=== PATIENT | female | born 1935 | race Caucasian/White ===

== ENCOUNTER 2016-07-02 13:45 | Emergency (ER) | payer MEDICARE, OTHER ==
[2016-07-02 14:01] VITALS: BP 179/101; PULSE 91; RESP 18; O2SAT 100
--- NOTE | 2016-07-02 14:07 | ED.REPORT ---
HPI-Chest Pain 40 and Over Date of Service Jul 02, 2016 ED Provider: Wesley Vail MD This is an 81 year old female with a history of acid reflux presenting with substernal chest pain that began 2 days ago. Pain is intermittent and described as sharp. She denies vomiting, fever, chills, cough, abdominal pain, constipation, diarrhea, or diaphoresis. Pt states symptoms are different from those she experiences with acid reflux. Nursing Notes Stated Complaint: NAUSEA/VOMITING Chief Complaint: Chest Pain-Non Cardiac Nature Nursing Notes Reviewed: Yes Allergies: Coded Allergies: No Known Allergies (Unverified , 07/02/16) Scheduled Omeprazole (Omeprazole) 40 Mg Capsule.dr 40 MG PO DAILY General Time Seen by MD: 13:59 Chief Complaint Chest pain Hx Obtained From: Patient Arrived By: Ambulance Sudden in Onset?: Yes Onset Occurred: 2 days ago Symptom Duration: Since onset Severity: Current: Mild Pertinent Negative: Pt denies other symptoms Recent Healthcare: No recent doctor visit, No recent hospitalization Similar Sx Previous: No Past Medical History Past Medical History Acid reflux Past Surgical History Denies Ambulatory Status Wheelchair Review of Systems Constitutional: Denies: Chills, Fever Respiratory: Denies: Non-productive cough, Shortness of breath Cardiovascular: Reports: Chest pain GI: Denies: Abdominal pain, Nausea, Vomiting Neurologic: Denies: Change LOC, Confusion, Dizziness, Headache, Lightheaded Complete sys rev & neg: except as marked. Physical Exam Initial Vital Signs Vital Signs (First) Date Time Temp Pulse Resp B/P Pulse Ox O2 Delivery O2 Flow Rate FiO2 07/02/16 14:01 36.6 91 18 179/101 100 Room Air Initial VS: Reviewed Head / Eyes: Atraumatic, Normocephalic, PERRL ENT: Mucous membranes moist, Conjunctiva normal, No scleral icterus Neck: Supple, Non-tender, Full range of motion Extremities: Vascular intact, Neuro intact, No swelling, No tenderness Skin: Warm, Dry, No cyanosis Neurologic: Alert, Oriented, Nonfocal Psychiatric: Mood/affect normal, Behavior normal, Normal thought content General/Constitutional: Awake, Alert Respiratory / Chest: Breath sounds NL, Breath sounds = bilat, No respiratory distress, No rales, No rhonchi, No wheezing, No stridor, No chest tenderness Non-reproducible substernal chest tenderness Cardiovascular: Heart rate NL, Regular rhythm, Heart sounds NL, No murmurs, Peripheral circulation NL, Pulses = bilaterally, No gross BP differential Abdomen: Non-tender, No guarding, No rebound, BS normoactive Interpretation & Diagnostics Lab Results Interpretation Result Diagram: 07/02/16 1412 07/02/16 1412 Test 07/02/16 14:12 White Blood Count 7.2th/mm3 (3.8-10.1) Red Blood Count 5.01mil/mm3 (3.90-5.20) Hemoglobin 14.4g/dL (12.0-15.6) Hematocrit 42.6% (35.0-46.0) Mean Corpuscular Volume 85.0fL (81-100) Mean Corpuscular Hemoglobin 28.7pg (27.0-35.0) Mean Corpuscular Hemoglobin Concent 33.8% (32.0-37.0) Red Cell Distribution Width 16.1% (12.3-15.4) Platelet Count 341bil/L (150-400) Neutrophils (%) (Auto) 81.0% (40-74) Lymphocytes (%) (Auto) 9.5% (14-46) Monocytes (%) (Auto) 8.2% (4-12) Eosinophils (%) (Auto) 0.6% (0-5) Basophils (%) (Auto) 0.6% (0-3) Sodium Level 139mEq/L (134-144) Potassium Level 3.9mEq/L (3.5-5.2) Chloride Level 100mEq/L (97-108) Carbon Dioxide Level 23mmol/L (18-29) Blood Urea Nitrogen 13mg/dL (8-27) Creatinine 0.73mg/dL (0.57-1.00) Estimat Glomerular Filtration Rate 109mL/min (>59) Glucose Level 87mg/dL (60-99) Calcium Level 9.2mg/dL (8.5-10.1) Magnesium Level 2.2mg/dL (1.6-2.6) Total Bilirubin 0.6mg/dL (0.0-1.2) Aspartate Amino Transf (AST/SGOT) 24U/L (0-50) Alanine Aminotransferase (ALT/SGPT) 20U/L (0-32) Alkaline Phosphatase 73U/L (25-165) Troponin T < 0.010ug/L (0.0-0.011) Pro-B-Type Natriuretic Peptide 250.5pg/mL (0-738) Total Protein 7.4g/dL (6.4-8.4) Albumin 4.0g/dL (3.4-5.0) Hold Albarran Top Tube Received (Received) ECG Interpretation ECG Interpretation: Sinus tachycardia at a rate of 99 Q waves in V2 and V3 Re-Eval/Medical Decision Med Decision/Clinical Course 81-year-old female history of acid reflux presenting complaining of epigastric substernal chest pain started several days ago. It is coming on but has been present most of the last couple days. Nonexertional. No associated symptoms. EKG no signs ischemia. Troponins negative. Chest pain is not reproducible. No risk factors for PE. Patient's pain resolved immediately after GI cocktail. Likely due to gastritis. Prescribed prescription for omeprazole daily and Tums as needed. Return precautions given. Time of Eval: 15:46 Re-Evaluation/Progress Note: Re-checked, discussed plan for d/c, all questions addressed. Counseled Regarding: Diagnosis, Lab results, Need for follow-up, When/why to return to ED Discharge & Departure Primary Impression: Non-cardiac chest pain Additional Impression: Gastritis Disposition: Home Discharge Condition All VS Reviewed: Yes Condition: Stable Patient Instructions: Chest Pain (ED), Gastritis (ED) Additional Instructions: Your labs and x-ray were reassuring today. Take omeprazole as prescribed. Follow-up with your primary care provider. Return to the emergency department if you develop any new or worsening symptoms. Scribe Attestation Portions of this note were transcribed by Theo Tsai. I, Dr. Vail personally performed the history, physical exam and medical decision-making; I reviewed and confirmed the accuracy of the information in the transcribed note. Signed by: Theo Tsai. 07/02/2015, 14:07. Wesley Vail MD Jul 02, 2016 14:07 THEO TSAI Jul 02, 2016 14:15
[2016-07-02] MEDS ORDERED: Alum-Mag Hydrox-Simeth 30 mL Suspension PO ONE (14:15)
[2016-07-02 14:22] LABS: BASOPHILS % (AUTO) 0.6 % (0-3); EOSINOPHILS % (AUTO) 0.6 % (0-5); MONOCYTES % (AUTO) 8.2 % (4-12); Mean Corpuscular Hemoglobin 28.7 pg (27.0-35.0); Platelet Count 341 bil/L (150-400)
[2016-07-02 14:59] LABS: Magnesium 2.2 mg/dL (1.6-2.6)
[2016-07-02 15:01] LABS: TROPONIN T < 0.010 ug/L (0.0-0.011)
[2016-07-02] MEDS ORDERED: OMEP40CA36 PO (15:51)
--- NOTE | 2016-07-02 15:51 | DRSVH ---
PROCEDURE: X-RAY CHEST ONE VIEW, PORTABLE ([id number]) INDICATIONS: chest pain TECHNIQUE: One view of the chest was acquired. COMPARISON: None. FINDINGS: Surgical changes and devices: None. Lungs and pleura: No pleural effusions or pneumothorax. Lungs are clear. Mediastinum: Mediastinal contours appear normal. Heart size is normal. Bones and chest wall: No suspicious bony lesions. Overlying soft tissues appear unremarkable. IMPRESSION: No acute cardiopulmonary disease process. Dictated by: Magnolia Harper MD, PhD on 07/02/2016 at 15:49 Approved by: Magnolia Harper MD, PhD on 07/02/2016 at 15:49
[2016-07-02 17:15] VITALS: BP 146/79; PULSE 87
[2016-07-17] MEDS ORDERED: LANS30CA14 PO (15:47)
[2016-07-17] MEDS ORDERED: ONDA4TAB6 PO (15:47)
== END 2016-07-02 17:16 | disposition home or self-care (01) ==
LOC: EDBD 13:45 → SED 13:45
DX: R07.89 Other chest pain (principal); K29.70 Gastritis, unspecified, without bleeding

== ENCOUNTER 2016-07-18 12:01 | Day surgery (SDC) | payer MEDICARE, OTHER ==
[~2016-07-18] VITALS: Ht 162.6 cm; Wt 46.7 kg
[~2016-07-18 12:01] MED LIST: 0.9% Sodium Chloride 1,000 ML IV SCH; LANS30CA14 PO; Lactated Ringer's 1,000 ML IV ONE; OMEP40CA36 PO; ONDA4TAB6 PO; Sodium Chloride LOK Flush 10 mL Syringe IV PRN; fentaNYL-PF 50 mCg/mL 2 mL Inj IVPUSH PRN
[2016-07-18] MEDS ORDERED: Propofol 10,000 mCg/mL 20 mL Inj ONE (12:02)
[2016-07-18 12:31] VITALS: BP 113/80; PULSE 67; RESP 16; O2SAT 99
[2016-07-18] MEDS ORDERED: LANS30TA4 PO (12:50)
[2016-07-18] MEDS ORDERED: Lactated Ringer's 1,000 ML IV SCH (14:01)
--- NOTE | 2016-07-18 14:01 | PCM.HPANE ---
Patient Data Surgeon Admitting Provider: Attending Provider:Pawan Peng MD Primary Care Physician:Víctor Toro PA-C Other Provider:Leti Kauffman Anesthesia Reason for Visit Esophageal Obstruction Ht/WT & BMI Height (Feet): 5 Height (Inches): 4 Weight (Kilograms): 46.720 Body Mass Index 17.00 Allergies Coded Allergies: No Known Allergies (Unverified , 07/18/16) Past Anesthesia History Anesthesia History: Denies:: Abnormal Airway, Anesthesia Reactions, Difficult Intubation, Fam Anesthesia Reaction, Fam Malignant Hypertherm, Malignant Hyperthermia Diabetes History Hx Diabetes?: No MRSA MRSA: No Medications Home Meds Incl Beta Josefina: No Reported Medications Lansoprazole ODT (Prevacid ODT)30 Mg [id number] Mg PO DAILY Ref 0 07/18/16 Discontinued Reported Medications Lansoprazole DR (Prevacid)30 Mg [id number] Mg PO DAILY Ref 0 07/17/16 Ondansetron (Zofran)4 Mg Tablet4 Mg PO Q4H PRN For Nausea 07/17/16 Discontinued Scripts Omeprazole 40 Mg Capsule.dr40 Mg PO DAILY #30 CAPSULE Ref 0 Prov:Wesley Vail MD 07/02/16 History HEENT History: Positive for:: Dysphagia (UNABLE TO KEEP EVEN FLUIDS/PILLS DOWN. BEGAN IN 04/2016) Denies:: Abnormal Airway Difficult Intubation Hearing Problem Denture Type: Full- Upper Hx of Heart Problems?: No Cardiovascular History: Denies:: AICD Atrial Fibrillation Chest Pain Congestive Heart Failure Hypertension Pacemaker Valvular Heart Disease Hx of Respiratory Problem?: No Respiratory History: Denies:: Asthma COPD Cough Hemoptysis Pneumonia Tuberculosis Neurological History: Denies:: CVA Hx of GI Problems?: Yes Gastrointestinal History: Positive for:: Gastroesphageal Reflux (TAKING PEPCID SOLU-TABS WHEN SHE CAN) Denies:: Cirrhosis Diverticulitis Gall Bladder Disease Hiatal Hernia Liver Disease Rectal Bleeding Female Hx: Denies:: Currently Musculoskeletal History: Denies:: Fibromyalgia Joint Replacement Psycho Social History: Denies:: Anxiety Hx Depression Hx Surgeries?: Yes (MAXILLARY RESECTION) Hx Any Other Health Problems?: Yes Hx Diabetes: No Hx Alcohol Use: NoHx Substance Use: No Stop/Bang Treated for Sleep Apnea?: No Do You Have a CPAP Machine?: No S-Snoring: Do You Snore Loudly: No T-Tired: feel tired, fatigued: No O-Obsered: Observed not breath: No P-Blood Pressure: treated: No B- Body Mass Index > 35 kg/m2: No A- Age over 50: Yes N- Neck Large Circumference: No G- Gender Male: No GERMÁN Total Score: 1 Risk Assessment Category Category 1A: Patient has history of documented sleep apnea, and HAS NOT received any narcotic, sedative or anesthesia administration during this stay. Category 1B: Patient has history of documented sleep apnea, and HAS received any narcotic , sedative or anesthesia administration during this stay Category 2: Patient has SUSPECTED Obstructive Sleep Apnea, and HAS received any narcotic , sedative or anesthesia administration during this stay. Category 3: Patient has SUSPECTED Obstructive Sleep Apnea and HAS NOT received narcotic, sedative or anesthesia administration during this stay. Category 4: Outpatient in Procedural Areas with known sleep apnea or who screen positive for High Risk via the STOP/BANG questionnaire. Exam Exam Vital Signs Vital Signs Date Time Temp Pulse Resp B/P Pulse Ox O2 Delivery O2 Flow Rate FiO2 07/18/16 12:31 36.8 67 16 113/80 99 Room Air General Appearance: Alert, Oriented X3, Cooperative HEENT/AIRWAY: MP 2 Lungs: Clear to Auscultation Heart: Exam Unremarkable Meds/Labs/Diagnostics Admission Meds Current Medications Lactated Ringer's (Lr) 1,000 ml @ 10 mls/hr Q24H ONCE IV Last administered on 07/18/16t 12:31; Start 07/18/16 at 06:00; Stop 07/19/16 at 05:59 Plan Impression Patient chart reviewed, patient interviewed and anesthestic plan with risks, benefits, and alternatives discussed, and informed consent obtained. ASA Physical Status: ASA2 Mod Systemic Disease Anesthetic Plan: TIVA Bene/Risks/Altern/Consents: Yes HP Complete Prior to Induction: Yes Rudolph Owens MD Jul 18, 2016 14:01
[2016-07-18] MEDS ORDERED: MetoCLOpramide 5 mg/mL 2 mL Inj IVPUSH PRN (14:05)
[2016-07-18] MEDS ORDERED: Ondansetron 2 mg/mL 2 mL Inj IVPUSH PRN (14:05)
[2016-07-18 14:50] VITALS: BP 125/83; PULSE 69; RESP 16; O2SAT 97
[2016-07-18 15:00] VITALS: BP 129/82; PULSE 66; RESP 16; O2SAT 98
[2016-07-18 15:10] VITALS: BP 152/91; PULSE 70; RESP 16; O2SAT 98
--- NOTE | 2016-07-18 15:19 | PCM.ANEP1 ---
Post Anesthesia Phase 1 PACU Phase 1 Assessment Vital Signs Vital Signs Date Time Temp Pulse Resp B/P Pulse Ox O2 Delivery O2 Flow Rate FiO2 07/18/16 15:10 70 16 152/91 98 Room Air 07/18/16 15:00 66 16 129/82 98 Room Air 07/18/16 14:50 69 16 125/83 97 Room Air 07/18/16 12:31 36.8 67 16 113/80 99 Room Air Anesthetic Administered: MAC Level of Alertness: Awake, talking BEE's with Equal Strength: Yes Pain: No Nausea or Vomiting: No Oxygen Delivery: Room Air Lungs: Clear to Auscultation Dermatome Level: Full Sensation Rudolph Owens MD Jul 18, 2016 15:19
[2016-07-18 15:20] VITALS: BP 146/97; PULSE 67; RESP 16; O2SAT 99
--- NOTE | 2016-07-18 15:20 | PCM.ANEP2 ---
Post Anesthesia Evaluation ASA/CMS Post Anesthesia VS in Patient's Normal Range?: Yes Resp Stable; Airway Patent?: Yes CV Function & Hydration Stable: Yes Mental Status Recovered?: Yes Pain control Satisfactory?: Yes N/V Control Satisfactory?: Yes Rudloph Owens MD Jul 18, 2016 15:20
--- NOTE | 2016-07-21 08:13 | ENDO ---
[address] [address] ENDOSCOPY PROCEDURE PATIENT: BRENDEN NOONAN : 1935 MR#: [id number] ADMIT: 07/18/2016 JOB ID: [id number] DATE: 07/18/2016 PROCEDURE: Esophagogastroduodenoscopy. INDICATION: Dysphagia. Patient with a history of suspected esophageal cancer. She had a prior endoscopy done in [place] approximately two months ago, and at that time, was told that she likely has esophageal cancer. The patient deferred any further evaluation in terms of staging or treatment. She declined Oncology referral. The patient has had worsening dysphagia and was referred to me for further evaluation and treatment. Please see Dr. Owens's anesthesia report for details regarding ASA classification, Mallampati score and medications. INSTRUMENT USED: GIF H 180 as well as a GIXP 190 N. PROCEDURE DETAILS: After informed consent was obtained, the patient was brought into the GI suite, where she was placed on oxygen via nasal cannula and monitored with continuous pulse oximeter, telemetry and blood pressure monitoring. A time-out was performed. Then, she was placed in the left lateral decubitus position and a bite block was placed. Medications were then administered for sedation. A standard EGD scope was then inserted through the bite block and advanced to approximately 41 cm. Beyond this point, we encountered a stricture. The mucosa at 41 cm appeared to be friable but no obvious mass lesion was seen. The mucosa did appear to be mildly adenomatous. The standard EGD scope was then withdrawn and the GIF XP 190 N 5 mm scope was introduced through the bite block and we were able to advance this without difficulty to the second portion of the duodenum. FINDINGS: 1. From the GE junction extending to the mid gastric body, the mucosa contained pseudopolyps as well as appeared to be quite friable. Multiple random biopsies were obtained. Just below the GE junction in the cardia, there was an approximately 1 cm area of circumscribed tumor that was hard and appeared slightly necrotic. Multiple biopsies were obtained. 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 RECOMMENDATIONS: Await biopsy results. Pending biopsy results, referral to a tertiary care center for further management. In the meantime, I recommended she continue a full liquid diet, avoid solid foods, continue Prevacid SoluTabs. This was discussed in detail with the patient's two daughters. COMPLICATIONS: None. ESTIMATED BLOOD LOSS: Less than 5 mL.
--- NOTE | 2016-07-21 13:46 | PATH ---
SURGICAL PATHOLOGY Attending Physician:Sanam Paige CASE STATUS: Signed Out PATIENT NAME: BRENDEN NOONAN PID: [id number] : 1935 DATE COLLECTED:07/18/2016 22:35 SPECIMEN: 1: Gastric, Biopsy 2: Esophagus, Biopsy CLINICAL HISTORY: 1). GASTRIC BIOPSIES 2). ESOPHAGEAL BIOPSIES FINAL DIAGNOSIS: 1. Gastric Biopsy: Severe chronic inflammation involving what appears to be antral mucosa with large areas of necrosis consistent with ulceration. Immunohistochemistry for Helicobacter pending, to be reported by addendum. Negative for intestinal metaplasia. Reactive epithelial changes but negative for malignancy. 2. Esophagus Biopsy: Poorly differentiated adenocarcinoma involving a superficial area of ulceration of gastric cardia-type mucosa. No specialized metaplasia, Collins's-type esophagus identified. No squamous epithelium identified. ICD10: C15.9 NOTE: Part 2 (esophageal biopsy) is reviewed by Dr. Ashley Granados and Dr. Chetan Gray, who agree with the diagnosis. GROSS DESCRIPTION: The specimen is received in two formalin filled containers labeled with the patient's name. 1). The specimen is sublabeled "gastric" and consists of 3 friable portions of tissue which aggregate to 0.2 x 0.2 x 0.2 CM. The specimen is entirely submitted in cassettes 1A. 2). The specimen is sublabeled "esophageal" and consists of 2 portions of tissue which aggregate to 0.2-0.2 x 0.2 CM. The specimen is entirely submitted in cassette 2A. 07/18/2016 [facility] ICD-9 CODES: CPT CODES: 1: 38717, 44854 2: 65872, 84600 PROCEDURE/ADDENDA: Immunohistochemistry SPI Interpretation 1. Gastric Biopsies: Negative for Helicobacter pylori by immunohistochemistry. Results-Comments {Not Entered} Electronically Signed Out Aiden Cardenas MD Electronically Signed Out Aiden Cardenas MD [facility], [place] [address] Technical component performed at [facility], [address], [place], [address]
== END 2016-07-18 23:59 | disposition home or self-care (01) ==
LOC: END 12:01
PROVIDERS: ATTEND Internal Medicine Gastroenterology
DX: C16.0 Malignant neoplasm of cardia (principal); Z85.89 Personal history of malignant neoplasm of other organs and systems; Z85.830 Personal history of malignant neoplasm of bone; K21.9 Gastro-esophageal reflux disease without esophagitis
CPT/HCPCS: 43239; J7120